=== PATIENT | female | born 1930 | race African-American/Black ===

== ENCOUNTER 2016-09-17 09:52 | Outpatient (CLI) | payer MEDICARE, MEDICAID ==
[2016-09-17 13:16] LABS: Anion Gap 14 mmol/L (10-20); BUN (Urea Nitrogen) 24 mg/dL (9.8-20.1); Calc. Creatinine Clearance 0 mL/min (70-130); Carbon Dioxide 26 mmol/L (23-31); Chloride 106 mmol/L (98-107); Estimated GFR-MDRD 54; LDL Cholesterol, Calculated 91 mg/dL
[2016-09-17 14:02] LABS: Hemoglobin A1c 6.1 % (4.0-6.0)
== END 2016-09-17 09:53 ==
LOC: NAVSJIPCSP 09:52
PROVIDERS: ATTEND Internal Medicine
DX: E13.65 Other specified diabetes mellitus with hyperglycemia (principal); I12.9 Hypertensive chronic kidney disease with stage 1 through stage 4 chronic kidney disease, or unspecified chronic kidney disease; N18.2 Chronic kidney disease, stage 2 (mild); D63.1 Anemia in chronic kidney disease; K21.9 Gastro-esophageal reflux disease without esophagitis; Z79.899 Other long term (current) drug therapy
CPT/HCPCS: 36415; 80048; 80061; 83036

== ENCOUNTER 2016-11-09 14:11 | Outpatient (CLI) | payer MEDICARE, MEDICAID ==
[2016-11-09 14:59] LABS: #Eosinphils 0.1 thou/uL (0.0-0.7); #Lymphocytes 0.9 thou/uL (1.20-3.40); #Monocytes 0.4 thou/uL (0.11-0.59); #Neutrophils 4.4 thou/uL (1.40-6.50); %Basophils 0.8 % (0.0-1.0); %Eosinophils 2.5 % (0.0-10.0); %Lymphocytes 14.7 % (21.0-51.0); %Monocytes 7.4 % (0.0-10.0); Hematocrit 27.5 % (36.0-47.0); Mean Platelet Volume 7.1 fL (7.4-10.4); Red Blood Cell (RBC) Count 3.33 mill/uL (4.20-5.40); White Blood Cell (WBC) Count 5.9 thou/uL (4.8-10.8)
== END 2016-11-09 14:12 | disposition home or self-care (01) ==
LOC: NAVSJIPCSP 14:11 → NAV LAB 14:12
PROVIDERS: ATTEND Internal Medicine
DX: D64.9 Anemia, unspecified (principal)
CPT/HCPCS: 85025

== ENCOUNTER 2017-02-14 09:27 | Outpatient (CLI) | payer MEDICARE, MEDICAID ==
[2017-02-14 12:55] LABS: Anion Gap 18 mmol/L (10-20); BUN (Urea Nitrogen) 28 mg/dL (9.8-20.1); Calc. Creatinine Clearance 0 mL/min (70-130); Carbon Dioxide 24 mmol/L (23-31); Chloride 103 mmol/L (98-107); Estimated GFR-MDRD 54; Glucose 117 mg/dL (83-110); Potassium 4.7 mmol/L (3.5-5.1); Sodium 140 mmol/L (136-145)
[2017-02-14 12:57] LABS: Hemoglobin A1c 5.8 % (4.0-6.0)
[2017-02-14 13:08] LABS: Hemoglobin 8.6 g/dL (12.0-16.0); Mean Corpuscular HGB CONC 31.1 g/dL (32.0-36.0); Mean Corpuscular Hemoglobin 25.8 pg (27.0-31.0); Mean Corpuscular Volume 83.1 fl (81.0-99.0); Mean Platelet Volume 6.7 fL (7.4-10.4); Platelet Count 238 thou/uL (130-400); Red Blood Cell (RBC) Count 3.32 mill/uL (4.20-5.40); White Blood Cell (WBC) Count 6.6 thou/uL (4.8-10.8)
[2017-02-14 13:09] LABS: Anisocytosis SLIGHT = 6-15 cells (100X) (0-5/hpf); Band 1 % (5-11); Eosinophils 3 % (0-10); Hypochromia SLIGHT = 6-15 cells (100X) (0-5/hpf); Lymphocytes 18 % (21-51); MDiff Complete? YES; Monocytes 5 % (0-10); Neutrophil 73 % (42-75); PLT Morphology Comment Appears Adequate
== END 2017-02-14 09:28 ==
LOC: NAVSJIPCSP 09:27
PROVIDERS: ATTEND Internal Medicine
DX: E13.22 Other specified diabetes mellitus with diabetic chronic kidney disease (principal); E13.65 Other specified diabetes mellitus with hyperglycemia; N18.2 Chronic kidney disease, stage 2 (mild); M17.11 Unilateral primary osteoarthritis, right knee
CPT/HCPCS: 36415; 80048; 83036; 83880; 85025

== ENCOUNTER 2017-05-19 09:36 | Outpatient (CLI) | payer MEDICARE, MEDICAID ==
[2017-05-19 12:38] LABS: Hemoglobin A1c 6.5 % (4.0-6.0)
[2017-05-19 12:52] LABS: ALT (SGPT) 16 U/L (8-55); AST (SGOT) 22 U/L (5-34); Albumin 3.9 g/dL (3.4-4.8); Alkaline Phosphatase 106 U/L (40-150); Anion Gap 15 mmol/L (10-20); BUN (Urea Nitrogen) 26 mg/dL (9.8-20.1); Bilirubin, Total 0.2 mg/dL (0.2-1.2); Calc. Creatinine Clearance 0 mL/min (70-130); Calcium 9.2 mg/dL (7.8-10.44); Carbon Dioxide 26 mmol/L (23-31); Cardiac Risk 3.2 (Less than 4.5); Chloride 103 mmol/L (98-107); Cholesterol 159 mg/dl (< 200 Desired); Estimated GFR-MDRD 56; Globulin 3.7 g/dL (2.4-3.5); Glucose 129 mg/dL (83-110); HDL Cholesterol 49 mg/dL (>60 Neg Risk); LDL Cholesterol, Calculated 89 mg/dL; Potassium 4.9 mmol/L (3.5-5.1); Protein, Total 7.6 g/dL (6.0-8.3); Sodium 139 mmol/L (136-145); Triglycerides 105 mg/dL (Less than 150)
[2017-05-19 18:01] LABS: Creatinine, Urine 58.5 mg/dL (47-110); Microalbumin Urine 4.4 mg/dL (0.5-50.0); Microalbumin/Creat Ratio 75.2 mg/g (Less than 30)
== END 2017-05-19 09:37 | disposition home or self-care (01) ==
LOC: NAVSJIPCSP 09:36
PROVIDERS: ATTEND Internal Medicine
DX: Z79.899 Other long term (current) drug therapy (principal)
CPT/HCPCS: 36415; 80053; 80061; 82043; 83036; 84443; 87086

== ENCOUNTER 2019-01-04 15:02 | Outpatient (CLI) | payer MEDICARE, MEDICAID ==
--- NOTE | 2019-01-04 15:37 | RAD ---
TWO VIEWS CHEST: DATE: 01/04/2019. PROVIDED CLINICAL HISTORY: Cough. FINDINGS: Cardiac and mediastinal silhouette is within normal limits. Vascular calcification involves the aort ic arch. No focal consolidation, pleural fluid, or pneumothorax apparent. Evidence for bilateral ro tator cuff insufficiency. IMPRESSION: No evidence for an acute cardiopulmonary process. POS: [facility]
== END 2019-01-04 15:03 | disposition home or self-care (01) ==
LOC: NAV RAD 15:02
PROVIDERS: ATTEND Internal Medicine
DX: R05 Cough (principal)
CPT/HCPCS: 71046

== ENCOUNTER 2020-01-31 17:09 | Outpatient (CLI) | payer MEDICARE, MEDICAID ==
--- NOTE | 2020-01-31 17:45 | RAD ---
Exam: One view chest 3 views left ribs HISTORY: Pain FINDINGS: Chest one view: Atherosclerosis of the aorta. Normal cardiac silhouette. No pleural effusion. No masses or consolidat ion. No pneumothorax or acute osseous abnormalities. Chronic changes in both shoulders Left ribs: No fracture, cortical irregularity or periosteal reaction IMPRESSION: 1. No hydronephrosis 2. Cardiopulmonary process. 3. No evidence of a left rib fracture
== END 2020-01-31 17:10 | disposition home or self-care (01) ==
LOC: NAV RAD 17:09
PROVIDERS: ATTEND Internal Medicine
DX: R07.89 Other chest pain (principal); Z23 Encounter for immunization